=== PATIENT | female | born 1990 | race Caucasian/White ===

== ENCOUNTER 2024-10-22 10:45 | Outpatient (RCR) | payer BC, SELFPAY ==
[2024-10-20 18:54] LABS: HCG Qualitative,Urine Negative
--- NOTE | 2024-10-21 09:00 | XR_ITS ---
Examination: Nuclear medicine thyroid uptake and scan Exam date and time: October 21, 2024 0806 hours INDICATIONS: Diagnosis multinodular goiter, sore throat on the right side palpable nodules diagnosed 3 weeks ago on clinical examination by physician TECHNIQUE AND FINDINGS: Oral administration 287 uCi [id number] 6 hour 24 hour uptake values recorded as well as anterior oblique scans 6 hour uptake 10.5 cm percent normal range 6-24% 24 hour uptake 19.4% normal range 10-36% Homogeneous scan activity IMPRESSION: Negative examination, consider follow-up thyroid sonography
== END 2024-10-27 23:59 | disposition home or self-care (01) ==
LOC: SNUC 10:45
PROVIDERS: PCP Physician Assistant; Referring Provider Physician Assistant; Visit Provider Physician Assistant
DX: E04.2 Nontoxic multinodular goiter (principal); Z32.00 Encounter for pregnancy test, result unknown
CPT/HCPCS: 78013; 81025; A9516

== ENCOUNTER → 2024-10-29 | Outpatient (CLI) | payer BC, SELFPAY | END | disposition home or self-care (01) | LOC: SLDO 15:42 | PROVIDERS: PCP Nurse Practitioner Family; Referring Provider Nurse Practitioner Family; Visit Provider Nurse Practitioner Family | DX: N39.0 Urinary tract infection, site not specified (principal); N76.0 Acute vaginitis | CPT/HCPCS: 87086 ==

== ENCOUNTER → 2024-11-03 | Outpatient (CLI) | payer BC, SELFPAY ==
[2024-11-03 14:49] LABS: Collection Type, Urine Clean Catch
[2024-11-03 17:12] LABS: Bilirubin,Urine Negative (Negative); Blood,Urine Negative (Negative); Clarity,Urine Clear (Clear/Hazy); Color,Urine Lt-Yellow (Lt Yel-Yel); Glucose, Urine Negative (Negative); Ketones,Urine Negative (Negative); Leukocyte Esterase,Urine Negative (Negative); Nitrite,Urine Negative (Negative); Protein,Urine Negative (Neg - Trace); RBC,Urine < 1 /hpf (0-3); Specific Gravity,Urine 1.009 (1.001-1.035); Squamous Epithelial Cell,Urine 1 /hpf (0-5); Urobilinogen,Urine Negative mg/dL (0.0-1.0); WBC,Urine 1 /hpf (0-5)
== END | disposition home or self-care (01) ==
LOC: SLDO 14:27
PROVIDERS: PCP Family Medicine; Referring Provider Nurse Practitioner Family; Visit Provider Nurse Practitioner Family
DX: N39.0 Urinary tract infection, site not specified (principal)
CPT/HCPCS: 81001; 87086

== ENCOUNTER → 2025-03-03 | Outpatient (CLI) | payer BC, SELFPAY ==
--- NOTE | 2025-03-03 08:30 | XR_ITS ---
Examination: Thyroid sonography complete TECHNIQUE: Grayscale sonographic images thyroid lobes Date and time: March 03, 2025 0837 hours INDICATIONS: No thyroid nodules on thyroid sonogram November 05, 2013, diagnosis disorder of thyroid unspecified FINDINGS: Right thyroid 4.7 cm Midpole mass 14 x 13 mm ill-defined borders Lower pole nodule 9 x 9 mm Left thyroid 4.9 cm Upper pole nodule 8 x 6 mm Midpole nodule 2 x 2 mm IMPRESSION: Bilateral thyroid nodules Consider ultrasound-guided fine-needle aspiration of the complex vascular mass with ill-defined borders in the mid right thyroid lobe 14 x 11 x 13 mm
--- NOTE | 2025-03-03 09:00 | XR_ITS ---
Examination: Breast ultrasound complete, bilateral Date and time of exam: March 03, 2025 0904 hours INDICATIONS: Right breast sonogram September 21, 2021 retroareolar nodule 3 mm Technique: Real-time grayscale ultrasonographic imaging bilateral breasts, including all 4 quadrants as well as nipple retroareolar and axillary regions. Findings: Sonographic images right breast Retroareolar circumscribed nodule 4 x 4 millimeter Sonographic images left breast 12:00 cyst 3 x 3 mm IMPRESSION: BI-RADS Category 2: Benign findings
--- NOTE | 2025-03-03 10:00 | XR_ITS ---
Examination: Screening digital mammography, bilateral Computer aided detection 3-D breast Tomosynthesis, bilateral Date and time of exam: March 03, 2025 0942 hours Compared to mammograms dating to March 04, 2020 Indication: Screening Technique: Nonmagnified MLO, CC views of the breasts to been obtained, reconstructed from 3-D Tomosynthesis images. R2 computer aided detection program utilized for evaluation of suspicious masses and/or abnormal calcifications. 3-D Tomosynthesis images obtained. Findings: The breasts are heterogeneously dense, which may obscure small masses Benign calcifications. No interval suspicious masses Impression: BI-RADS category II: Benign Findings. Recommend 1 year follow-up mammogram.
== END | disposition home or self-care (01) ==
LOC: CDIM 08:24
PROVIDERS: Referring Provider Physician Assistant; Visit Provider Physician Assistant
DX: Z12.31 Encounter for screening mammogram for malignant neoplasm of breast (principal); R92.323 Mammographic fibroglandular density, bilateral breasts; R92.1 Mammographic calcification found on diagnostic imaging of breast; N63.41 Unspecified lump in right breast, subareolar; E04.2 Nontoxic multinodular goiter
CPT/HCPCS: 76536; 76641; 77063; 77067